=== PATIENT | male | born 2000 | race Caucasian/White ===

== ENCOUNTER 2023-07-03 14:54 | Emergency (ER) | payer OTHER ==
[~2023-07-03] VITALS: Ht 167.6 cm; Wt 57.2 kg
[2023-07-03 15:22] VITALS: BP 90/54; PULSE 62; RESP 18; TEMP 97.8; O2SAT 98
[2023-07-03] MEDS ORDERED: LID5T TP (16:02)
[2023-07-03] MEDS ORDERED: CYCL-711 PO (16:02)
[2023-07-03] MEDS ORDERED: IBUP-2213 PO (16:02)
[2023-07-03 17:24] VITALS: BP 110/62; PULSE 65; RESP 18; TEMP 97.8; O2SAT 98
== END 2023-07-03 17:24 | disposition home or self-care (01) ==
LOC: MED 14:54
DX: M54.50 Low back pain, unspecified (principal); Z79.899 Other long term (current) drug therapy
CPT/HCPCS: 99283